=== PATIENT | female | born 1970 | race Caucasian/White ===

== ENCOUNTER → 2017-02-05 | Outpatient (CLI) | payer BC ==
--- NOTE | 2017-02-05 15:33 | XR ---
EXAMINATION TYPE: XR KUB DATE OF EXAM: 02/05/2017 HISTORY: Pain Comparison: None.Single KUB is submitted for interpretation. Findings: Right renal calculi: None Visualized. Right ureteral calculi: None Visualized. Left renal calculi: None Visualized. Left ureteral calculi: None Visualized. Pelvic calcifications: Right hemipelvic calcifications may reflect phlebolith formation. Correlate c linically. Bowel gas pattern is unremarkable. No free air. No mass effects. Mild fecal stasis. IMPRESSION: 1. Right hemipelvic calcifications may reflect phlebolith formation. Correlate clinically. No additio nal calculi identified.
== END | disposition home or self-care (01) ==
LOC: RADXRMAIN 15:09
PROVIDERS: ATTEND Urology
DX: N28.89 Other specified disorders of kidney and ureter (principal)
CPT/HCPCS: 74000

== ENCOUNTER → 2017-02-12 | Outpatient (CLI) | payer BC ==
--- NOTE | 2017-02-12 16:39 | CT ---
EXAMINATION TYPE: CT abdomen pelvis wo con DATE OF EXAM: 02/12/2017 COMPARISON: NONE HISTORY: 46-year-old female complains of bilateral pelvic pain and gross hematuria. CT DLP: 240.6 mGycm. Automated exposure control for dose reduction was used. TECHNIQUE: Contiguous axial scanning of the abdomen and pelvis without IV contrast. Coronal and sagit agueda reconstructions performed. FINDINGS: Heart is normal size. Mild pectus excavatum deformity. Lung bases clear without pleural effusion. There are a couple hypodense lesions in the right hepatic lobe, larger measuring 1.8 cm suggestive of a cyst. Gallbladder, adrenal glands, kidneys, spleen, and pancreas show no gross abnormality by noncontrast C T. Extrarenal pelvis on the right. No nephrolithiasis. No suspicious calculus along the course of eit her ureter. No dilated small bowel, free fluid, or free air. Scattered nonenlarged mesenteric lymph nodes are pre sent. No mesenteric or retroperitoneal lymphadenopathy. Moderate stool within the colon. No pericolonic inflammatory change. Bladder partially urine distended. Uterus and both ovaries are visualized. No abnormal fluid collecti on in the pelvis. Rectum appears normal. No pelvic lymphadenopathy seen. Pelvic phleboliths. Bones: Mild degenerative changes at the hips. Mild degenerative disc disease lower lumbar spine. No osseous destructive process. IMPRESSION: 1. Extrarenal pelvis on the right. No nephrolithiasis or suspicious ureteral calculus. 2. Moderate stool burden.
== END | disposition home or self-care (01) ==
LOC: RADCTMAIN 16:15
PROVIDERS: ATTEND Urology
DX: N28.89 Other specified disorders of kidney and ureter (principal)
CPT/HCPCS: 74176

== ENCOUNTER → 2017-10-30 | Outpatient (CLI) | payer BC ==
--- NOTE | 2017-11-02 10:32 | MM ---
Reason for exam: screening (asymptomatic). Last mammogram was performed 1 year and 11 months ago. History: Family history of breast cancer in paternal aunt at age 50 and breast cancer in grandmother at age 70. Benign left breast aspiration of the left breast, June 18, 2012. Physical Findings: A clinical breast exam by your physician is recommended on an annual basis and results should be correlated with mammographic findings. MG Screening Mammo w CAD Bilateral CC and MLO view(s) were taken. Prior study comparison: December 14, 2015, bilateral MG 3d screening mammo w/cad. October 27, 2014, bilateral MG screening mammo w CAD. The breast tissue is heterogeneously dense. This may lower the sensitivity of mammography. Bilateral breast nodularity shows fluctuating size, increasing size particularly on the left. ASSESSMENT: Incomplete: need additional imaging evaluation, BI-RAD 0 RECOMMENDATION: Ultrasound of both breasts. [facility] will attempt to contact patient to return for ultrasound.
== END | disposition home or self-care (01) ==
LOC: RADMAMWWP 12:11
PROVIDERS: ATTEND Obstetrics & Gynecology
DX: Z12.31 Encounter for screening mammogram for malignant neoplasm of breast (principal); Z80.3 Family history of malignant neoplasm of breast
CPT/HCPCS: 77067

== ENCOUNTER → 2017-11-23 | Day surgery (SDC) | payer BC ==
[2017-11-23 11:27] VITALS: RESP 12
[2017-11-23 12:43] VITALS: BP 110/76; PULSE 60; TEMP 98.7
--- NOTE | 2017-11-23 14:36 | USB ---
EXAMINATION TYPE: US biopsy breast VAD RT DATE OF EXAM: 11/23/2017 COMPARISON: 11/13/2017 CLINICAL HISTORY: . Right breast mass at the 9:00 position for which biopsy was recommended. FINDINGS: The procedure was explained to the patient. Benefits, alternatives, and risks were discussed. An informed consent was then obtained. Preprocedural timeout was performed. Maximal barrier technique was utilized. The 0.6 x 0.6 x 0.6 cm mass at the 9: 00 position within the right breast was localized with ultrasound and the overlying skin was prepped and draped. Lidocaine used for local anesthesia with 10 cc of lidocaine without epinephrine. Subsequently 10 cc of lidocaine with epinephrine was utilized to anesthetize the deeper soft tissues at the site of biopsy. Vacuum-assisted core biopsy device was advanced under direct ultrasound guidance to the level of the breast mass and as a vacuum assisted core biopsy device was advanced the complicated cyst rupture and was no longer appreciable. IMPRESSION: Rupture of a complex cyst at the time of biopsy at the 9:00 position within the right breast with samples obtained. ADDENDUM: Impression should read as follows: IMPRESSION: Rupture of a complex cyst at the time of biopsy at the 9:00 position within the right breast with samples obtained. No samples were sent to the laboratory for analysis. ZACH
== END ==
LOC: RADUSWWP 10:55
PROVIDERS: ATTEND Surgery
DX: N60.01 Solitary cyst of right breast (principal)
CPT/HCPCS: 19083; J2001; 76942

== ENCOUNTER → 2019-08-16 | Outpatient (CLI) | payer BC ==
--- NOTE | 2019-08-16 11:25 | MM ---
Reason for exam: clinical finding. Last mammogram was performed 1 year and 9 months ago. History: Family history of breast cancer in paternal aunt at age 50 and breast cancer in grandmother at age 70. US biopsy breast VAD RT of the right breast, November 23, 2017. Benign left breast aspiration of the left breast, June 18, 2012. Physical Findings: Nurse Summary: 2 x 2cm nodule in the left breast at nipple (nurse ts). MG 3D Diag Mammo W/Cad [facility] Bilateral CC, MLO, and XCCL view(s) were taken. Prior study comparison: October 30, 2017, bilateral MG screening mammo w CAD. December 14, 2015, bilateral MG 3d screening mammo w/cad. The breast tissue is extremely dense which could obscure a lesion on mammography. There are multiple benign appearing round oval left masses throughout. These results were verbally communicated with the patient and result sheet given to the patient on 08/16/19. ASSESSMENT: Incomplete: need additional imaging evaluation, BI-RAD 0 RECOMMENDATION: Ultrasound of the left breast.
--- NOTE | 2019-08-16 11:26 | USB ---
Reason for exam: clinical finding. History: Family history of breast cancer in paternal aunt at age 50 and breast cancer in grandmother at age 70. US biopsy breast VAD RT of the right breast, November 23, 2017. Benign left breast aspiration of the left breast, June 18, 2012. US Breast LT Left complete breast ultrasound includes all four quadrants, the retroareolar region and axilla. Finding demonstrates a 3.3 x 1.9 x 3.2cm oval, cystic cluster at 5 o'clock BB. Numerous other simple cyst throughout the left breast. These results were verbally communicated with the patient and result sheet given to the patient on 08/16/19. ASSESSMENT: Benign, BI-RAD 2 RECOMMENDATION: Routine screening mammogram of both breasts in 1 year.
== END | disposition home or self-care (01) ==
LOC: RADMAMWWP 08:21
PROVIDERS: ATTEND Obstetrics & Gynecology
DX: R92.8 Other abnormal and inconclusive findings on diagnostic imaging of breast (principal); N60.09 Solitary cyst of unspecified breast
CPT/HCPCS: 77062; 77066

== ENCOUNTER → 2021-01-11 | Outpatient (CLI) | payer BC ==
--- NOTE | 2021-01-16 13:13 | MM ---
Reason for exam: screening (asymptomatic). Last mammogram was performed 1 year and 5 months ago. History: Family history of breast cancer in paternal aunt at age 50 and breast cancer in grandmother at age 70. US biopsy breast VAD RT of the right breast, November 23, 2017. Benign left breast aspiration of the left breast, June 18, 2012. Physical Findings: A clinical breast exam by your physician is recommended on an annual basis and results should be correlated with mammographic findings. MG 3D Screening Mammo W/Cad Bilateral CC and MLO view(s) were taken. Prior study comparison: August 16, 2019, bilateral MG 3d diag mammo w/cad [facility]. October 30, 2017, bilateral MG screening mammo w CAD. The breast tissue is heterogeneously dense. This may lower the sensitivity of mammography. ASSESSMENT: Negative, BI-RAD 1 RECOMMENDATION: Routine screening mammogram of both breasts in 1 year.
== END | disposition home or self-care (01) ==
LOC: RADMAMWWP 08:42
PROVIDERS: ATTEND Obstetrics & Gynecology
DX: Z12.31 Encounter for screening mammogram for malignant neoplasm of breast (principal); Z80.3 Family history of malignant neoplasm of breast
CPT/HCPCS: 77063; 77067

== ENCOUNTER → 2022-02-21 | Outpatient (CLI) | payer BC ==
--- NOTE | 2022-02-24 16:54 | MM ---
Reason for Exam: Screening (asymptomatic). Last mammogram was performed 1 year(s) and 1 month(s) ago. Patient History: Menarche at age 12. First Full-Term at age 21. 11/23/2017, Core Biopsy on the Right side. 06/18/2012, Benign Cyst Aspiration on the left side. Maternal grandmother had breast cancer, age 70. Paternal aunt had breast cancer, age 50. Risk Values: Cheri 5 year model risk: 1.1%. NCI Lifetime model risk: 9.1%. Prior Study Comparison: 10/30/2017 Bilateral Screening Mammogram, [facility]. 08/16/2019 Bilateral Diagnostic Mammogram, [facility]. 01/11/2021 Bilateral Screening Mammogram, [facility]. Tissue Density: The breast tissue is extremely dense which could obscure a lesion on mammography. Findings: Analyzed By CAD. Benign-appearing calcifications are present bilaterally. There is a 1.3 cm rounded density with partially obscured margins 3 cm from the nipple within the left breast. There is a 1.0 cm rounded density with partially obscured margins 1 cm from the nipple. These appear to be smaller than comparison. No suspicious groups of microcalcifications, spiculated or lobular masses, architectural distortion or other secondary signs of malignancy are mammographically apparent. Overall Assessment: Benign, BI-RAD 2 Management: Screening Mammogram of both breasts in 1 year. A negative mammogram report should not preclude additional follow up of suspicious palpable abnormalities. Patient should continue monthly self breast exam. A clinical breast exam by your physician is recommended on an annual basis and results should be correlated with mammographic findings. Electronically signed and approved by: Jayce Marsh D.O. Radiologis
== END | disposition home or self-care (01) ==
LOC: RADMAMWWP 09:15
PROVIDERS: ATTEND Obstetrics & Gynecology
DX: Z12.31 Encounter for screening mammogram for malignant neoplasm of breast (principal); Z80.3 Family history of malignant neoplasm of breast
CPT/HCPCS: 77063; 77067

== ENCOUNTER → 2023-08-07 | Outpatient (CLI) | payer BC ==
--- NOTE | 2023-08-07 13:19 | MM ---
Reason for Exam: Screening (asymptomatic). Last mammogram was performed 1 year(s) and 6 month(s) ago. Patient History: Menarche at age 12. First Full-Term at age 21. Postmenopausal. 11/23/2017, Core Biopsy on the Right side. 06/18/2012, Benign Cyst Aspiration on the left side. Maternal grandmother had breast cancer, age 70. Paternal aunt had breast cancer, age 50. Risk Values: Cheri 5 year model risk: 1.2%. NCI Lifetime model risk: 8.8%. Prior Study Comparison: 08/16/2019 Bilateral Diagnostic Mammogram, [facility]. 01/11/2021 Bilateral Screening Mammogram, [facility]. 02/21/2022 Bilateral MG 3D screening mammo w/cad, [facility]. Tissue Density: The breast tissue is heterogeneously dense. This may lower the sensitivity of mammography. Findings: Analyzed By CAD. There is no suspicious group of microcalcifications or new suspicious mass. Overall Assessment: Negative, BI-RAD 1 Management: Screening Mammogram of both breasts in [address] [facility] will attempt to contact patient to return for supplemental views and ultrasound if indicated. Patient should continue monthly self-breast exams. A clinical breast exam by your physician is recommended on an annual basis. This exam should not preclude additional follow-up of suspicious palpable abnormalities. Note on Cheri scores and lifetime risk: 1. A Cheri score greater than 3% is considered moderate risk. If this is the case, consider specialist referral to assess eligibility for a risk reducing agent. 2. If overall lifetime risk for the development of breast cancer is 20% or higher, the patient may qualify for future screening with alternating mammogram and breast MRI. Electronically signed and approved by: Elliott Bustos DO
== END | disposition home or self-care (01) ==
LOC: RADMAMWWP 08:40
PROVIDERS: ATTEND Obstetrics & Gynecology
DX: Z12.31 Encounter for screening mammogram for malignant neoplasm of breast (principal); Z78.0 Asymptomatic menopausal state; Z80.3 Family history of malignant neoplasm of breast
CPT/HCPCS: 77063; 77067

== ENCOUNTER → 2025-01-06 | Outpatient (CLI) | payer BC ==
--- NOTE | 2025-01-06 13:49 | MM ---
Reason for Exam: Screening (asymptomatic). Last mammogram was performed 1 year(s) and 5 month(s) ago. Patient History: Menarche at age 12. First Full-Term at age 21. Postmenopausal. 11/23/2017, Core Biopsy on the Right side. 06/18/2012, Benign Cyst Aspiration on the left side. Maternal grandmother had breast cancer, age 70. Paternal aunt had breast cancer, age 50. Risk Values: Cheri 5 year model risk: 1.2%. NCI Lifetime model risk: 8.7%. Prior Study Comparison: 01/11/2021 Bilateral Screening Mammogram, [facility]. 02/21/2022 Bilateral MG 3D screening mammo w/cad, [facility]. 08/07/2023 Bilateral MG 3D screening mammo w/cad, [facility]. Tissue Density: The breasts are extremely dense, which lowers the sensitivity of mammography. Findings: Analyzed By CAD. Right breast: There is no suspicious group of microcalcifications or new suspicious mass. Benign-appearing calcifications right breast. Left breast: Stable nodular density left breast posterior inferiorly region. Given the multiple years There is no suspicious group of microcalcifications or new suspicious mass. Benign-appearing calcifications left breast. Overall Assessment: Benign, BI-RAD 2 Management: Screening Mammogram of both breasts in [address] [facility] will attempt to contact patient to return for supplemental views and ultrasound if indicated. Patient should continue monthly self-breast exams. A clinical breast exam by your physician is recommended on an annual basis. This exam should not preclude additional follow-up of suspicious palpable abnormalities. Note on Cheri scores and lifetime risk: 1. A Cheri score greater than 3% is considered moderate risk. If this is the case, consider specialist referral to assess eligibility for a risk reducing agent. 2. If overall lifetime risk for the development of breast cancer is 20% or higher, the patient may qualify for future screening with alternating mammogram and breast MRI. [facility], , 01/06/2025 1:47 PM. Electronically signed and approved by: Elliott Bustos DO
--- NOTE | 2025-01-08 21:49 | BD ---
EXAMINATION TYPE: Axial Bone Density DATE OF EXAM: 01/06/2025 CLINICAL HISTORY: 54 years old Female. ICD-10 CODE: Z78.0 ASYMPTOMATIC MENOPAUSAL , Additional Hist ory: Height: 66" Weight: 142lbs FRAX RISK QUESTIONS: Alcohol (3 or more units per day): No Family History (Parent hip fracture): No Glucocorticoids (More than 3mos): No (Ex: prednisone, prednisolone, methylprednisolone, dexamethasone, and hydrocortisone). History of Fracture in Adulthood: Yes Secondary Osteoporosis: 1. Type 1 Diabetes: No 2. Hyperthyroidism: No 3. Menopause before 45: No 4. Malnutrition: No 5. Chronic liver disease: No Rheumatoid Arthritis: No Current Tobacco Use: Yes RISK FACTORS HISTORY OF: Hip Fracture (Right/Left): No Spine Fracture: No History of Wrist Fracture: No Surgery to Spine/Hip(right/left)/Wrist (right/left): No MEDICATIONS: Thyroid Medications: No Osteoporosis Medications: No EXAM MEASUREMENTS: Bone mineral densitometry was performed using the [employer] System. Bone mineral density as measured about the Lumbar spine is: ----- L1-L4(G/cm2): 1.033 T Score Values are as follows: ----- L1: -1.2 ----- L2: -1.1 ----- L3: -1.3 ----- L4: -1.4 ----- L1-L4: -1.2 Z Score Values are as follows: ----- L1: -0.3 ----- L2: -0.3 ----- L3: -0.5 ----- L4: -0.5 ----- L1-L4: -0.4 Baseline @MPH Bone mineral density about the R hip (g/cm2): 0.964 Bone mineral density about the L hip (g/cm2): 0.940 T Score values are as follows: -----R Neck: -0.8 -----L Neck: -1.2 -----R Total: -0.3 -----L Total: -0.5 Z Score values are as follows: -----R Neck: 0.2 -----L Neck: -0.2 -----R Total: 0.3 -----L Total: 0.2 Baseline @MPH FRAX%s: The graph provided illustrates a 10.6% chance for a major osteoporotic fx and a 1.2% chance f or the hips probability for fx in 10 years time. IMPRESSION: Osteopenia (T Score between -2.5 and -1). There is slightly increased risk of fracture and the patient may be considered for treatment. Re-Screen 2-5 years. NOTE: T-SCORE=SD OF THE YOUNG ADULT MEAN. [facility], , 01/08/2025 9:46 PM
== END | disposition home or self-care (01) ==
LOC: RADBDWWP 13:13
PROVIDERS: ATTEND Family Medicine
DX: Z12.31 Encounter for screening mammogram for malignant neoplasm of breast (principal); R92.343 Mammographic extreme density, bilateral breasts; M85.89 Other specified disorders of bone density and structure, multiple sites; Z80.3 Family history of malignant neoplasm of breast; Z78.0 Asymptomatic menopausal state
CPT/HCPCS: 77063; 77067; 77080